=== PATIENT | male | born 1995 | race Two or more races ===

== ENCOUNTER 2017-08-22 13:44 | Day surgery (SDC) | payer MEDICAID ==
[~2017-08-22] VITALS: Ht 177.8 cm; Wt 59.1 kg
[2017-08-22 13:55] VITALS: BP 106/68
[2017-08-22] MEDS ORDERED: MULT-38 PO (14:20)
[2017-08-22] MEDS ORDERED: fentaNYL/PF 50MCG/1 ML 2ML syringe ONE (14:22)
[2017-08-22] MEDS ORDERED: LIDOcaine Viscous 15ml cup ONE (14:22)
[2017-08-22] MEDS ORDERED: MIDAZolam 5mg/5ml vial ONE (14:22)
[2017-08-22 14:44] VITALS: BP 104/48
[2017-08-22 14:54] VITALS: BP 105/52
[2017-08-22 15:04] VITALS: BP 101/52
[2017-08-22 15:14] VITALS: BP 107/41
== END 2017-08-22 15:25 | disposition home or self-care (01) ==
LOC: GI LAB 13:44
PROVIDERS: ATTEND Internal Medicine Gastroenterology
DX: K29.70 Gastritis, unspecified, without bleeding (principal); Z79.899 Other long term (current) drug therapy; Z88.8 Allergy status to other drugs, medicaments and biological substances
CPT/HCPCS: 43239; J2250; J3010; J7030; A4620; G0500